=== PATIENT | female | born 1940 ===

== ENCOUNTER 2016-11-19 02:52 | Inpatient (IN) | payer MEDICARE, MEDICAID ==
[2016-11-19 02:52] VITALS: BMI 19.5
--- NOTE | 2016-11-19 04:16 | ED PDOC ---
HPI: General Adult Time Seen by Provider: 11/19/16 03:16 Chief Complaint (Nursing): Psychiatric Evaluation Chief Complaint (Provider): Psychiatric Evaluation History Per: Patient History/Exam Limitations: no limitations Onset/Duration Of Symptoms: Hrs Have you had recent travel within the past 21 days to any of the following countries: [place], [place], [place] or [place]?: No Current Symptoms Are (Timing): Better Severity: Mild Additional Complaint(s): 76 y/o female patient presenting to the ED with chest pain and anxiety. PT states yesterday at 7pm she was having dinner and decided to check her blood pressure which read 149/60. She states she took two of her prescribed medications: Amlodipine and Metoprolol. She states she does not take her medications daily but but that her blood pressure did decrease after taking them. She then states that she checked her blood pressure again at 10:00pm that evening and it read 156/70 which she says made her start to feel nervous, and began having chest pain and palpations. She then called her PCP Dr. Dao who then instructed her to come get checked out in the ED. The PT has a past medical history of Hypothyroidism, high cholesterol, diabetes and high blood pressure and she may possibly have had a coronary stent put in. Past Medical History Reviewed: Historical Data, Nursing Documentation, Vital Signs Vital Signs: Last Vital Signs Temp 98.4 F 11/19/16 03:06 Pulse 68 11/19/16 04:28 Resp 16 11/19/16 03:06 BP 138/71 11/19/16 03:06 Pulse Ox 100 11/19/16 04:28 - Medical History PMH: Anxiety, Arthritis, CAD, HTN, Hypercholesterolemia, Hypothyroidism Denies: Chronic Kidney Disease - Surgical History Surgical History: Coronary Stent (Unconfirmed) - Family History Family History: States: Unknown Family Hx - Immunization History Hx Tetanus Toxoid Vaccination: No Hx Influenza Vaccination: Yes Hx Pneumococcal Vaccination: No - Home Medications Home Medications: Ambulatory Orders Medication Instructions Recorded Levothyroxine [Synthroid] 25 mcg PO DAILY 06/24/15 Aspirin [Ecotrin] 81 mg PO DAILY 07/14/15 amLODIPine [Norvasc] 5 mg PO DAILY 07/14/15 Rosuvastatin Calcium [Crestor] 10 mg PO HS #0 tab 07/15/15 Clonazepam 0.25 mg PO BID 12/05/15 Linaclotide [Linzess] 145 mcg PO DAILY 12/05/15 Metoprolol Succinate [Toprol XL] 25 mg PO DAILY 12/05/15 Omeprazole [Prilosec] 20 mg PO DAILY 12/05/15 Dexlansoprazole [Dexilant] 60 mg PO DAILY #0 ankit. 12/07/15 Ferrous Sulfate 325 mg PO BID #0 tablet 12/08/15 Lubiprostone [Amitiza] 24 mcg PO BID PRN #60 capsule 12/08/15 - Allergies Allergies/Adverse Reactions: Allergies Allergy/AdvReac Type Severity Reaction Status Date / Time Penicillins Allergy ITCHING Verified 12/05/15 14:02 shellfish derived Allergy ITCHING Verified 12/05/15 14:02 Review of Systems ROS Statement: Except As Marked, All Systems Reviewed And Found Negative Constitutional: Negative for: Fever Cardiovascular: Positive for: Chest Pain, Palpitations Respiratory: Negative for: Shortness of Breath, Wheezing Psych: Positive for: Anxiety Physical Exam - Reviewed Nursing Documentation Reviewed: Yes Vital Signs Reviewed: Yes - Physical Exam Appears: Positive for: Non-toxic, No Acute Distress Head Exam: Positive for: ATRAUMATIC, NORMAL INSPECTION, NORMOCEPHALIC Skin: Positive for: Normal Color, Warm Eye Exam: Positive for: Normal appearance Neck: Positive for: Normal, Painless ROM, Supple Cardiovascular/Chest: Positive for: Regular Rate, Rhythm. Negative for: Murmur Respiratory: Positive for: Normal Breath Sounds Extremity: Positive for: Normal ROM. Negative for: Tenderness Neurologic/Psych: Positive for: Alert, Oriented. Negative for: Motor/Sensory Deficits - Laboratory Results Result Diagrams: 11/19/16 04:40 11/19/16 04:40 - ECG ECG: Positive for: Interpreted By Me ECG Rhythm: Positive for: Sinus Rhythm. Negative for: ST/T Changes Rate: 68 (BPM) O2 Sat by Pulse Oximetry: 100 (98) Pulse Ox Interpretation: Normal - Radiology X-Ray: Interpreted by Me (CXR) X-Ray Interpretation: No Acute Disease - Progress ED Course And Treament: Case d/w Dr. Dao and arrangements made for 23 hr observation. IV NS hydration. Medical Decision Making Medical Decision Making: Time: 357 Initial impression: Anxiety Initial plan: --CMP --TROPONIN I --CBC --CHEST PORTABLE XRAY --ASPIRIN 324MG PO --[employer] --IV INSERTION Scribe Attestation: Documented by Jessie Cochran, acting as a scribe for LILIAM Slater MD Scribe Attestation: All medical record entries made by the Scribe were at my direction and personally dictated by me. I have reviewed the chart and agree that the record accurately reflects my personal performance of the history, physical exam, medical decision making, and the department course for this patient. I have also personally directed, reviewed, and agree with the discharge instructions and disposition. Disposition - Clinical Impression Clinical Impression: Chest pain, Hyponatremia - Patient ED Disposition Is Patient to be Admitted: Yes - Disposition Disposition: Routine/Home Disposition Time: 05:33 Condition: STABLE - Pt Status Changed To: Hospital Disposition Of: Observation - POA Present On Arrival: None KINZA Risk Score for UA/NSTEMI - KINZA Risk Score Age > 64: YES 3 or more CAD Risk Factors: YES Known CAD (Stenosis greater than 50%): NO Aspirin use in past 7 days: YES Severe Angina: NO EKG ST changes greater than 0.5mm: NO Positive Cardiac Marker: NO KINZA Score: 3 % risk at 14 days of: all cause mortality, new or recurrent SD, or severe recurrent ischemia requiring urgen revascularization: 13%
[2016-11-19 04:49] LABS: BASO % 0.7 % (0.0-2.0); EOS % 0.7 % (0.0-4.0); HEMATOCRIT 36.9 % (34.0-47.0); LYMPH # 0.6 K/uL (1.0-4.3); LYMPH % 20.3 % (20.0-40.0); MEAN CELL VOLUME 88.9 fl (81.0-99.0); MEAN CORPUSCULAR HEMOGLOBIN 29.3 pg (27.0-31.0); MEAN CORPUSCULAR HGB CONC 32.9 g/dL (33.0-37.0); MEAN PLATELET VOLUME 7.3 fl (7.2-11.7); MONO # 0.3 K/uL (0.0-0.8); NEUT # 2.3 K/uL (1.8-7.0); NEUT % 70.3 % (50.0-75.0); WHITE BLOOD COUNT 3.2 K/uL (4.8-10.8)
[2016-11-19 05:02] LABS: ALB/GLOB RATIO 1.5 (1.0-2.1); ALKALINE PHOSPHATASE 50 U/L (38-126); ALT/SGPT 34 U/L (9-52); AST/SGOT 35 U/L (14-36); BILIRUBIN,TOTAL 0.9 mg/dl (0.2-1.3); BLOOD UREA NITROGEN 7 mg/dl (7-17); CALCIUM 9.2 mg/dL (8.4-10.2); CARBON DIOXIDE 23 mmol/L (22-30); CHLORIDE 84 mmol/L (98-107); GFR AFRICAN-AMERICAN > 60; GLUCOSE,RANDOM 112 mg/dL (65-105); POTASSIUM 4.1 MMOL/L (3.6-5.0); TOTAL PROTEIN 8.2 G/DL (6.3-8.2)
[2016-11-19 05:20] LABS: SODIUM 118 mmol/l (132-148)
[2016-11-19] MEDS ORDERED: Sodium Chloride 0.9% 1,000 ML IV STA (05:27)
--- NOTE | 2016-11-19 09:40 | RAD ---
HISTORY: chest pain COMPARISON: 12/05/2015 FINDINGS: LUNGS: No focal airspace opacity. Emphysematous changes in the lung apices. PLEURA: No significant pleural effusion identified, no pneumothorax apparent. CARDIOVASCULAR: Stable. OSSEOUS STRUCTURES: The osseous structures demonstrate degenerative changes. VISUALIZED UPPER ABDOMEN: Normal. OTHER FINDINGS: None. IMPRESSION: No focal airspace opacity. No significant interval change.
[2016-11-19] MEDS ORDERED: DEXLANSOPRAZOLE 60 MG PO SCH (10:15)
[2016-11-19] MEDS: Levothyroxine 25 MCG TAB PO SCH (14:13)
[2016-11-19] MEDS: Metoprolol Succinate 25 mg XL Tab PO SCH (14:15)
[2016-11-20] VITALS: O2SAT 99
[2016-11-20 08:18] LABS: BASO % 0.9 % (0.0-2.0); EOS # 0.1 K/uL (0.0-0.7); EOS % 2.9 % (0.0-4.0); LYMPH # 0.8 K/uL (1.0-4.3); LYMPH % 26.6 % (20.0-40.0); MEAN CELL VOLUME 89.3 fl (81.0-99.0); MEAN CORPUSCULAR HEMOGLOBIN 29.2 pg (27.0-31.0); MEAN CORPUSCULAR HGB CONC 32.8 g/dL (33.0-37.0); MEAN PLATELET VOLUME 7.3 fl (7.2-11.7); MONO # 0.5 K/uL (0.0-0.8); MONO % 16.2 % (0.0-10.0); NEUT # 1.6 K/uL (1.8-7.0); NEUT % 53.4 % (50.0-75.0); NRBC % 0.1 % (0.0-0.0); RED CELL DISTRIBUTION WIDTH 13.3 % (11.5-14.5); WHITE BLOOD COUNT 3.1 K/uL (4.8-10.8)
[2016-11-20 08:31] LABS: ALB/GLOB RATIO 1.3 (1.0-2.1); ALKALINE PHOSPHATASE 48 U/L (38-126); ALT/SGPT 35 U/L (9-52); AST/SGOT 39 U/L (14-36); BILIRUBIN,TOTAL 0.4 mg/dl (0.2-1.3); BLOOD UREA NITROGEN 9 mg/dl (7-17); CARBON DIOXIDE 25 mmol/L (22-30); CHLORIDE 100 mmol/L (98-107); GFR AFRICAN-AMERICAN > 60; GLUCOSE,RANDOM 87 mg/dL (65-105); POTASSIUM 3.7 MMOL/L (3.6-5.0); SODIUM 132 mmol/l (132-148); TOTAL PROTEIN 7.3 G/DL (6.3-8.2)
[2016-11-20] MEDS ORDERED: Pantoprazole 20 mg EC Tab PO SCH (09:00)
[2016-11-20] MEDS: Levothyroxine 25 MCG TAB PO SCH (09:00)
--- NOTE | 2016-11-20 10:52 | CP.PCM.HP ---
History of Present Illness - History of Present Illness History of Present Illness: This is a 76 y/o female admitted through the ER last night for apparently elevated BP. She apparently could not sleep and took her BP and noted systolic BP to be 180. Took her meds and was brought to ER where BP was already normal. She was noted however to have very low sodium hence she was kep for observation. She denies any headaches chest pain or SOb. She is very anxious, Has hx of HTN hyperlipidemia and hypothyroidism and anxiety Present on Admission - Present on Admission Any Indicators Present on Admission: No History of DVT/PE: No History of Uncontrolled Diabetes: No Urinary Catheter: No Decubitus Ulcer Present: No Review of Systems - Psychiatric Psychiatric: Anxiety Past Patient History - Infectious Disease Hx of Infectious Diseases: None - Tetanus Immunizations Tetanus Immunization: Unknown - Past Medical History & Family History Past Medical History?: Yes - Past Social History Smoking Status: Never Smoked - CARDIAC Hx Hypercholesterolemia: Yes Hx Hypertension: Yes Other/Comment: Loop recorder internal surveillance system monitor implanted 2016 at [facility] - PULMONARY Hx Respiratory Disorders: No Hx Asthma: No Hx Bronchitis: No Hx Chronic Obstructive Pulmonary Disease (COPD): No Hx Emphysema: No Hx Lung Cancer: No Hx Pneumonia: No Hx Pulmonary Edema: No Hx Pulmonary Embolism: No Hx Respiratory Aspiration: No Hx Respiratory Tract Infection: No Hx Sleep Apnea: No Hx Tuberculosis: No - NEUROLOGICAL Hx Neurological Disorder: Yes Other/Comment: Dizziness - HEENT Hx HEENT Problems: No - RENAL Hx Chronic Kidney Disease: No - ENDOCRINE/METABOLIC Hx Hypothyroidism: Yes - HEMATOLOGICAL/ONCOLOGICAL Hx Blood Disorders: No - INTEGUMENTARY Hx Dermatological Problems: No - MUSCULOSKELETAL/RHEUMATOLOGICAL Hx Musculoskeletal Disorders: Yes Hx Arthritis: Yes Hx Falls: No - GASTROINTESTINAL Hx Gastrointestinal Disorders: Yes Hx Ulcer: Yes Other/Comment: gastritis ,rectal bleeding - GENITOURINARY/GYNECOLOGICAL Hx Genitourinary Disorders: No - PSYCHIATRIC Hx Anxiety: Yes Hx Substance Use: No - SURGICAL HISTORY Hx Surgeries: Yes Hx Coronary Stent: Yes (Unconfirmed) - ANESTHESIA Hx Anesthesia: Yes Hx Anesthesia Reactions: No Hx Malignant Hyperthermia: No Has any member of the family had a problem w/ anesthesia?: No Meds Allergies/Adverse Reactions: Allergies Allergy/AdvReac Type Severity Reaction Status Date / Time Penicillins Allergy ITCHING Verified 12/05/15 14:02 shellfish derived Allergy ITCHING Verified 06/18/16 14:02 Physical Exam - Head Exam Head Exam: NORMAL INSPECTION - Eye Exam Eye Exam: Normal appearance - ENT Exam ENT Exam: Mucous Membranes Moist - Respiratory Exam Respiratory Exam: Clear to Auscultation Bilateral - Cardiovascular Exam Cardiovascular Exam: REGULAR RHYTHM - GI/Abdominal Exam GI & Abdominal Exam: Normal Bowel Sounds - Neurological Exam Neurological exam: CN II-XII Intact, Oriented x3 - Psychiatric Exam Psychiatric exam: Anxious Results - Vital Signs Recent Vital Signs: Last Vital Signs Temp 97.9 F 11/20/16 07:52 Pulse 58 L 11/20/16 08:30 Resp 18 11/20/16 07:52 BP 159/68 H 11/20/16 08:30 Pulse Ox 99 11/20/16 07:52 - Labs Result Diagrams: 11/20/16 06:30 11/20/16 06:30 Labs: Laboratory Results - last 24 hr 11/20/16 11/20/16 11/20/16 05:04 06:30 06:30 WBC 3.1 L RBC 4.25 Hgb 12.4 Hct 38.0 MCV 89.3 MCH 29.2 MCHC 32.8 L RDW 13.3 Plt Count 176 MPV 7.3 Neut % (Auto) 53.4 Lymph % (Auto) 26.6 [place] % (Auto) 16.2 H Eos % (Auto) 2.9 Baso % (Auto) 0.9 Neut # 1.6 L Lymph # 0.8 L [place] # 0.5 Eos # 0.1 Baso # 0.0 Sodium 132 Potassium 3.7 Chloride 100 Carbon Dioxide 25 Anion Gap 11 BUN 9 Creatinine 0.5 L Est GFR ( Amer) > 60 Est GFR (Non-Af Amer) > 60 POC Glucose (mg/dL) 83 Random Glucose 87 Calcium 9.0 Total Bilirubin 0.4 AST 39 H ALT 35 Alkaline Phosphatase 48 Total Protein 7.3 Albumin 4.1 Globulin 3.2 Albumin/Globulin Ratio 1.3 Assessment & Plan (1) Hyponatremia Status: Acute (2) HTN (hypertension), benign Status: Acute (3) Hyperlipidemia Status: Chronic (4) Hypothyroid Status: Chronic (5) Anxiety Status: Acute - Assessment and Plan (Free Text) Plan: will give liberal salty diet increase hydration BP check repeat labs in am resume all home meds.
--- NOTE | 2016-11-20 10:57 | CP.PCM.DIS ---
Provider - Provider Date of Admission: 11/19/16 10:27 Attending physician: Ariel Dao MD Time Spent in preparation of Discharge (in minutes): 20 Diagnosis - Discharge Diagnosis (1) Hyponatremia Status: Acute (2) HTN (hypertension), benign Status: Acute (3) Hyperlipidemia Status: Chronic (4) Hypothyroid Status: Chronic (5) Anxiety Status: Acute Hospital Course - Lab Results Lab Results: Most Recent Lab Values WBC 3.1 K/uL (4.8-10.8) L 11/20/16 06:30 RBC 4.25 Mil/uL (3.80-5.20) 11/20/16 06:30 Hgb 12.4 g/dL (12.0-16.0) 11/20/16 06:30 Hct 38.0 % (34.0-47.0) 11/20/16 06:30 MCV 89.3 fl (81.0-99.0) 11/20/16 06:30 MCH 29.2 pg (27.0-31.0) 11/20/16 06:30 MCHC 32.8 g/dL (33.0-37.0) L 11/20/16 06:30 RDW 13.3 % (11.5-14.5) 11/20/16 06:30 Plt Count 176 K/uL (130-400) 11/20/16 06:30 MPV 7.3 fl (7.2-11.7) 11/20/16 06:30 Neut % (Auto) 53.4 % (50.0-75.0) 11/20/16 06:30 Lymph % (Auto) 26.6 % (20.0-40.0) 11/20/16 06:30 [place] % (Auto) 16.2 % (0.0-10.0) H 11/20/16 06:30 Eos % (Auto) 2.9 % (0.0-4.0) 11/20/16 06:30 Baso % (Auto) 0.9 % (0.0-2.0) 11/20/16 06:30 Neut # 1.6 K/uL (1.8-7.0) L 11/20/16 06:30 Lymph # 0.8 K/uL (1.0-4.3) L 11/20/16 06:30 [place] # 0.5 K/uL (0.0-0.8) 11/20/16 06:30 Eos # 0.1 K/uL (0.0-0.7) 11/20/16 06:30 Baso # 0.0 K/uL (0.0-0.2) 11/20/16 06:30 Sodium 132 mmol/l (132-148) 11/20/16 06:30 Potassium 3.7 MMOL/L (3.6-5.0) 11/20/16 06:30 Chloride 100 mmol/L (98-107) 11/20/16 06:30 Carbon Dioxide 25 mmol/L (22-30) 11/20/16 06:30 Anion Gap 11 (10-20) 11/20/16 06:30 BUN 9 mg/dl (7-17) 11/20/16 06:30 Creatinine 0.5 mg/dL (0.7-1.2) L 11/20/16 06:30 Est GFR ( Amer) > 60 11/20/16 06:30 Est GFR (Non-Af Amer) > 60 11/20/16 06:30 POC Glucose (mg/dL) 83 mg/dL (65-110) 11/20/16 05:04 Random Glucose 87 mg/dL (65-105) 11/20/16 06:30 Calcium 9.0 mg/dL (8.4-10.2) 11/20/16 06:30 Total Bilirubin 0.4 mg/dl (0.2-1.3) 11/20/16 06:30 AST 39 U/L (14-36) H 11/20/16 06:30 ALT 35 U/L (9-52) 11/20/16 06:30 Alkaline Phosphatase 48 U/L (38-126) 11/20/16 06:30 Troponin I < 0.0120 ng/mL (0.00-0.120) 11/19/16 04:40 Total Protein 7.3 G/DL (6.3-8.2) 11/20/16 06:30 Albumin 4.1 g/dL (3.5-5.0) 11/20/16 06:30 Globulin 3.2 gm/dL (2.2-3.9) 11/20/16 06:30 Albumin/Globulin Ratio 1.3 (1.0-2.1) 11/20/16 06:30 - Hospital Course Hospital Course: This is a 76 y/o female admitted for hyponatremia. Apparently sh has been on a no salt diet due to her HTN. She was rushed to the ER for elevated BP but noted to have a sodium of 118 hence she was kept for observation She was placed on a liberal salt diet and repeat labs showed a sodium of 132. She had no chest pain or SOB or headaches, She was maintained on all her home meds and was discharged in stable condition. advised to follow up in 1 to 2 weeks Discharge Exam - Head Exam Head Exam: NORMAL INSPECTION - Eye Exam Eye Exam: Normal appearance - Respiratory Exam Respiratory Exam: NORMAL BREATHING PATTERN - Cardiovascular Exam Cardiovascular Exam: REGULAR RHYTHM - GI/Abdominal Exam GI & Abdominal Exam: Normal Bowel Sounds - Neurological Exam Neurological exam: CN II-XII Intact - Psychiatric Exam Psychiatric exam: Normal Mood Discharge Plan - Follow Up Plan Condition: STABLE Disposition: HOME/ ROUTINE Additional Instructions: follow up in 1 week cont all home meds.
[2016-11-20 15:44] VITALS: BP 104/62; RESP 20; TEMP 97.4
[2016-11-20] MEDS: Metoprolol Succinate 25 mg XL Tab PO SCH (16:15)
[2016-11-20 16:16] VITALS: PULSE 54
== END 2016-11-20 18:34 | disposition home or self-care (01) | DRG 641 ==
LOC: H.ER 02:52 → H.ERHOLD 05:32 → H.TEL 06:33 → OBSVTOIN 10:27
PROVIDERS: ADMIT Family Medicine; ATTEND Family Medicine
DX: E87.1 Hypo-osmolality and hyponatremia (principal); E11.9 Type 2 diabetes mellitus without complications; I10 Essential (primary) hypertension; E03.9 Hypothyroidism, unspecified; F41.9 Anxiety disorder, unspecified; E78.00 Pure hypercholesterolemia, unspecified; E78.5 Hyperlipidemia, unspecified; I25.10 Atherosclerotic heart disease of native coronary artery without angina pectoris

== ENCOUNTER 2018-01-12 12:41 | Inpatient (IN) | payer MEDICARE, MEDICAID ==
[2018-01-12 12:41] VITALS: BMI 19.5
[2018-01-12] MEDS ORDERED: Sodium Chloride 0.9% 500 ML IV STA (13:18)
--- NOTE | 2018-01-12 13:22 | ED PDOC ---
HPI: Chest Pain Time Seen by Provider: 01/12/18 12:53 Chief Complaint (Nursing): Chest Pain Chief Complaint (Provider): Chest pain History Per: Patient History/Exam Limitations: no limitations Onset/Duration Of Symptoms: Days (today) Current Symptoms Are (Timing): Better Additional Complaint(s): Pt. got into an argument today and started having chest pain after on the left side. No dyspnea, weakness, numbness, tingles, fever, cough. No leg pain, headache, dizziness. Dr. Dao: PCP. Past Medical History Reviewed: Nursing Documentation, Vital Signs Vital Signs: Last Vital Signs Temp 97.0 F L 01/12/18 12:44 Pulse 71 01/12/18 16:03 Resp 19 01/12/18 16:03 BP 125/67 01/12/18 16:03 Pulse Ox 99 01/12/18 16:23 - Medical History PMH: Anxiety, Arthritis, CAD, Diabetes, HTN, Hypercholesterolemia, Hypothyroidism Denies: Asthma, Bronchitis, COPD, Emphysema, Pneumonia, Pulmonary Embolism, Chronic Kidney Disease, Sleep Apnea - Surgical History Surgical History: Coronary Stent (Unconfirmed) - Family History Family History: States: Unknown Family Hx - Immunization History Hx Tetanus Toxoid Vaccination: No Hx Influenza Vaccination: Yes Hx Pneumococcal Vaccination: No - Home Medications Home Medications: Ambulatory Orders Medication Instructions Recorded Levothyroxine [Synthroid] 25 mcg PO DAILY 06/24/15 Aspirin [Ecotrin] 81 mg PO DAILY 07/14/15 amLODIPine [Norvasc] 5 mg PO DAILY 07/14/15 Rosuvastatin Calcium [Crestor] 10 mg PO HS #0 tab 07/15/15 Clonazepam 0.25 mg PO BID 12/05/15 Linaclotide [Linzess] 145 mcg PO DAILY 12/05/15 Metoprolol Succinate XL [Toprol XL] 25 mg PO DAILY 12/05/15 Omeprazole [Prilosec] 20 mg PO DAILY 12/05/15 Dexlansoprazole [Dexilant] 60 mg PO DAILY #0 bp 12/07/15 Ferrous Sulfate 325 mg PO BID #0 tablet 12/08/15 Lubiprostone [Amitiza] 24 mcg PO BID PRN #60 capsule 12/08/15 - Allergies Allergies/Adverse Reactions: Allergies Allergy/AdvReac Type Severity Reaction Status Date / Time Penicillins Allergy ITCHING Verified 12/05/15 14:02 shellfish derived Allergy ITCHING Verified 12/05/15 14:02 Review of Systems ROS Statement: Except As Marked, All Systems Reviewed And Found Negative Cardiovascular: Positive for: Chest Pain Physical Exam - Reviewed Nursing Documentation Reviewed: Yes Vital Signs Reviewed: Yes - Physical Exam Appears: Positive for: Non-toxic, No Acute Distress Head Exam: Positive for: ATRAUMATIC, NORMAL INSPECTION, NORMOCEPHALIC Skin: Positive for: Normal Color, Warm, DRY Eye Exam: Positive for: EOMI, Normal appearance, PERRL ENT: Positive for: Normal ENT Inspection Neck: Positive for: Normal, Painless ROM Cardiovascular/Chest: Positive for: Regular Rate, Rhythm Respiratory: Positive for: CNT, Normal Breath Sounds Gastrointestinal/Abdominal: Positive for: Normal Exam, Soft. Negative for: Tenderness Back: Positive for: Normal Inspection. Negative for: L CVA Tenderness, R CVA Tenderness Extremity: Positive for: Normal ROM. Negative for: Tenderness, Pedal Edema Neurologic/Psych: Positive for: Alert, staffing director II-XII, Oriented. Negative for: Motor/Sensory Deficits - Laboratory Results Result Diagrams: 01/12/18 13:30 01/12/18 13:30 Interpretation Of Abn Labs: no acute - ECG ECG: Positive for: Interpreted By Me, Viewed By Me ECG Rhythm: Positive for: Normal QRS, Sinus Rhythm, Nonspecific Changes O2 Sat by Pulse Oximetry: 99 Pulse Ox Interpretation: Normal - Radiology X-Ray: Read By Radiologist X-Ray Interpretation: No Acute Disease - Progress ED Course And Treament: 1647: Spoke with Dr. Perales. Will admit tele obs for Dr. Dao. Stable. Pain controlled. Disposition - Clinical Impression Clinical Impression: Acute chest pain - Patient ED Disposition Is Patient to be Admitted: Yes - Disposition Disposition Time: 16:29 Condition: FAIR - Pt Status Changed To: Hospital Disposition Of: Observation - POA Present On Arrival: None
[2018-01-12 13:34] LABS: BASO % 1.1 % (0.0-2.0); EOS % 1.1 % (0.0-4.0); HEMOGLOBIN 12.2 g/dL (12.0-16.0); LYMPH # 0.4 K/uL (1.0-4.3); LYMPH % 15.2 % (20.0-40.0); MEAN CELL VOLUME 89.4 fl (81.0-99.0); MEAN CORPUSCULAR HEMOGLOBIN 29.9 pg (27.0-31.0); MEAN CORPUSCULAR HGB CONC 33.4 g/dL (33.0-37.0); MEAN PLATELET VOLUME 6.9 fl (7.2-11.7); MONO # 0.4 K/uL (0.0-0.8); NEUT % 68.6 % (50.0-75.0); NRBC % 0.1 % (0.0-0.0); RBC 4.09 Mil/uL (3.80-5.20); RED CELL DISTRIBUTION WIDTH 12.8 % (11.5-14.5); WHITE BLOOD COUNT 2.9 K/uL (4.8-10.8)
[2018-01-12 14:10] LABS: BLOOD UREA NITROGEN 9 mg/dl (7-17); GFR NON-AFRICAN AMERICAN > 60
[2018-01-12 14:11] LABS: ALBUMIN 4.6 g/dL (3.5-5.0); CALCIUM 9.5 mg/dL (8.4-10.2)
[2018-01-12 14:12] LABS: ALB/GLOB RATIO 1.4 (1.0-2.1); ALT/SGPT 23 U/L (9-52); AST/SGOT 34 U/L (14-36)
--- NOTE | 2018-01-12 15:23 | RAD ---
Date of service: 01/12/2018 HISTORY: Chest pain COMPARISON: 11/19/2016. FINDINGS: LUNGS: No active pulmonary disease. PLEURA: No significant pleural effusion identified, no pneumothorax apparent. CARDIOVASCULAR: No radiographic findings to suggest acute or significant cardiovascular disease. OSSEOUS STRUCTURES: No significant abnormalities. VISUALIZED UPPER ABDOMEN: Normal. OTHER FINDINGS: None. IMPRESSION: No active disease. No significant interval change compared to the prior examination(s).
--- NOTE | 2018-01-12 21:07 | CARD ---
APPROVED REPORT Date of service: 01/12/2018 EKG Measurement Heart [id number] <Conclusion> Normal sinus rhythm Possible Left atrial enlargement Left axis deviation Septal infarct, age undetermined Abnormal ECG
[2018-01-13] MEDS: Levothyroxine 25 MCG TAB PO SCH (06:43)
[2018-01-13 07:25] LABS: HEMOGLOBIN 12.2 g/dL (12.0-16.0); MEAN CELL VOLUME 89.6 fl (81.0-99.0); MEAN CORPUSCULAR HEMOGLOBIN 29.8 pg (27.0-31.0); MEAN CORPUSCULAR HGB CONC 33.2 g/dL (33.0-37.0); RBC 4.11 Mil/uL (3.80-5.20); RED CELL DISTRIBUTION WIDTH 13.1 % (11.5-14.5); WHITE BLOOD COUNT 2.8 K/uL (4.8-10.8)
[2018-01-13 07:42] LABS: ALB/GLOB RATIO 1.3 (1.0-2.1); ALBUMIN 4.1 g/dL (3.5-5.0); ALT/SGPT 25 U/L (9-52); AST/SGOT 38 U/L (14-36); BLOOD UREA NITROGEN 8 mg/dl (7-17); CALCIUM 9.3 mg/dL (8.4-10.2); GFR NON-AFRICAN AMERICAN > 60; HDL CHOLESTEROL 55 MG/DL (30-70)
[2018-01-13 07:53] LABS: LDL CHOLESTEROL 86 mg/dL (0-129)
[2018-01-13] MEDS: Pantoprazole 40 mg EC Tab PO SCH (08:44)
[2018-01-13] MEDS: Metoprolol Succinate 25 mg XL Tab PO SCH (08:44)
[2018-01-13] MEDS: Enoxaparin 30 mg Syringe SC SCH (08:45)
--- NOTE | 2018-01-13 20:55 | CP.PCM.CON ---
Past Patient History - Infectious Disease Hx of Infectious Diseases: None - Tetanus Immunizations Tetanus Immunization: Unknown - Past Medical History & Family History Past Medical History?: Yes - Past Social History Smoking Status: Never Smoked - CARDIAC Hx Hypercholesterolemia: Yes Hx Hypertension: Yes - PULMONARY Hx Asthma: No Hx Bronchitis: No Hx Chronic Obstructive Pulmonary Disease (COPD): No Hx Emphysema: No Hx Pneumonia: No Hx Pulmonary Embolism: No Hx Sleep Apnea: No - NEUROLOGICAL Hx Neurological Disorder: Yes Other/Comment: Dizziness - HEENT Hx HEENT Problems: No - RENAL Hx Chronic Kidney Disease: No - ENDOCRINE/METABOLIC Hx Diabetes Mellitus Type 2: Yes Hx Hypothyroidism: Yes - HEMATOLOGICAL/ONCOLOGICAL Hx Blood Disorders: No Hx AIDS: No Hx Human Immunodeficiency Virus (HIV): No - INTEGUMENTARY Hx Dermatological Problems: No - MUSCULOSKELETAL/RHEUMATOLOGICAL Hx Arthritis: Yes Hx Falls: Yes - GASTROINTESTINAL Hx Gastrointestinal Disorders: Yes Hx Ulcer: Yes Other/Comment: gastritis ,rectal bleeding - GENITOURINARY/GYNECOLOGICAL Hx Genitourinary Disorders: No - PSYCHIATRIC Hx Anxiety: Yes Hx Substance Use: No - SURGICAL HISTORY Hx Coronary Stent: Yes (Unconfirmed) - ANESTHESIA Hx Anesthesia: Yes Hx Anesthesia Reactions: No Hx Malignant Hyperthermia: No Meds Allergies/Adverse Reactions: Allergies Allergy/AdvReac Type Severity Reaction Status Date / Time Penicillins Allergy ITCHING Verified 12/05/15 14:02 shellfish derived Allergy ITCHING Verified 12/05/15 14:02 - Medications Medications: Current Medications Amlodipine Besylate (Norvasc) 5 mg PO DAILY [facility] Last Admin: 01/13/18 08:44 Dose: 5 mg Aspirin (Ecotrin) 81 mg PO DAILY [facility] Last Admin: 01/13/18 08:44 Dose: 81 mg Atorvastatin Calcium (Lipitor) 40 mg PO [facility] Last Admin: 01/12/18 23:20 Dose: 40 mg Enoxaparin Sodium (Lovenox) 30 mg SC DAILY [facility] PRN Reason: Protocol Last Admin: 01/13/18 08:45 Dose: 30 mg Levothyroxine Sodium (Synthroid) 25 mcg PO DAILY@0630 [facility] Last Admin: 01/13/18 06:43 Dose: 25 mcg Metoprolol Succinate (Toprol Xl) 25 mg PO DAILY [facility] Last Admin: 01/13/18 08:44 Dose: 25 mg Pantoprazole Sodium (Protonix Ec Tab) 40 mg PO DAILY [facility] Last Admin: 01/13/18 08:44 Dose: 40 mg Sitagliptin Phosphate (Januvia) 100 mg PO DAILY [facility] Last Admin: 01/13/18 08:44 Dose: 100 mg Results - Vital Signs Recent Vital Signs: Last Vital Signs Temp 98.4 F 01/13/18 16:00 Pulse 70 01/13/18 16:00 Resp 20 01/13/18 16:00 BP 120/55 L 01/13/18 16:00 Pulse Ox 99 01/13/18 16:00 - Labs Result Diagrams: 01/13/18 06:00 01/13/18 06:00 Labs: Laboratory Results - last 24 hr 01/12/18 01/13/18 01/13/18 21:14 05:21 06:00 WBC RBC Hgb Hct MCV MCH MCHC RDW Plt Count Sodium 136 Potassium 4.2 Chloride 98 Carbon Dioxide 28 Anion Gap 14 BUN 8 Creatinine 0.6 L Est GFR ( Amer) > 60 Est GFR (Non-Af Amer) > 60 POC Glucose (mg/dL) 83 Random Glucose 83 Calcium 9.3 Total Bilirubin 0.9 AST 38 H ALT 25 Alkaline Phosphatase 43 Troponin I < 0.0120 < 0.0120 Total Protein 7.3 Albumin 4.1 Globulin 3.2 Albumin/Globulin Ratio 1.3 Triglycerides 61 Cholesterol 171 LDL Cholesterol Direct 86 HDL Cholesterol 55 Vitamin B12 459 TSH 3rd Generation 3.07 01/13/18 01/13/18 01/13/18 06:00 07:40 11:51 WBC 2.8 L RBC 4.11 Hgb 12.2 Hct 36.8 MCV 89.6 MCH 29.8 MCHC 33.2 RDW 13.1 Plt Count 181 Sodium Potassium Chloride Carbon Dioxide Anion Gap BUN Creatinine Est GFR ( Amer) Est GFR (Non-Af Amer) POC Glucose (mg/dL) 96 Random Glucose Calcium Total Bilirubin AST ALT Alkaline Phosphatase Troponin I Total Protein Albumin Globulin Albumin/Globulin Ratio Triglycerides Cholesterol LDL Cholesterol Direct HDL Cholesterol Vitamin B12 457 TSH 3rd Generation
--- NOTE | 2018-01-13 21:06 | HP ---
CHIEF COMPLAINT: Chest pain. HISTORY OF PRESENT ILLNESS: This is a 77-year-old female patient of Dr. Dao, known case of diabetes, hypertension, elevated cholesterol, hypothyroidism, coronary artery disease, arthritis, anxiety, who had coronary stents done before, who was having chest pain after having argument with somebody and was brought to the emergency room and was admitted for further management. REVIEW OF SYSTEMS: Positive for chest pain. Review of systems is otherwise negative for headache, dizziness, syncope, loss of consciousness, nausea, vomiting, diarrhea, constipation, or any new joint or extremity pain. The patient does complain of chronic arthritic pain. Review of system of all other organ system is unremarkable. PAST MEDICAL HISTORY: Significant for diabetes, hypertension, elevated cholesterol, coronary artery disease, hypothyroidism, arthritis, and anxiety. PAST SURGICAL HISTORY: Remarkable for coronary stent. SOCIAL HISTORY: The patient is currently nonsmoker, nondrinker. No substance abuse. MEDICATIONS: The patient is on normal pain medications including Ecotrin, Synthroid, amlodipine, Crestor, Clonazepam, Lantus, Toprol, Prilosec, and Dexilant. ALLERGIES: THE PATIENT IS ALLERGIC TO PENICILLIN AND SHELLFISH. FAMILY HISTORY: Noncontributory. PHYSICAL EXAMINATION: GENERAL: A well-built, well-nourished 77-year-old female, in no acute distress. VITAL SIGNS: Temperature 97.7, pulse 61, respirations 18, blood pressure 130/66. HEENT: Pupils reacting to light. No JVD. No thyromegaly. No lymphadenopathy. No nystagmus. Normocephalic, atraumatic skull. HEART: S1 and S2. Normal and regular. No significant murmur, gallop, or rub are heard. LUNGS: Shows good bilateral air exchange. No rales or rhonchi. ABDOMEN: Soft and nontender. No organomegaly. No fluid. Bowel sounds are present and normal. EXTREMITIES: No edema. No calf swelling. No tenderness. No acute ischemia. 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 DIAGNOSTIC DATA: Available diagnostic data reviewed. Telemetry monitoring does not reveal significant arrhythmias. Troponin three sets are negative. Chest x-ray is clear. EKG does not reveal any acute ST-T changes. ADMITTING IMPRESSION: Chest pain, rule out acute coronary syndrome, coronary artery disease, hypertension, diabetes with hyperglycemia, hypertension, elevated cholesterol, anxiety, and arthritis. PLAN: As ordered. Case and plan discussed with the patient. Kai Perales MD
[2018-01-14] MEDS: Levothyroxine 25 MCG TAB PO SCH (05:56)
[2018-01-14 07:21] LABS: HEMOGLOBIN 12.3 g/dL (12.0-16.0); MEAN CELL VOLUME 87.9 fl (81.0-99.0); MEAN CORPUSCULAR HEMOGLOBIN 30.5 pg (27.0-31.0); MEAN CORPUSCULAR HGB CONC 34.7 g/dL (33.0-37.0); RBC 4.03 Mil/uL (3.80-5.20); RED CELL DISTRIBUTION WIDTH 12.7 % (11.5-14.5)
[2018-01-14 07:41] LABS: ALB/GLOB RATIO 1.3 (1.0-2.1); ALT/SGPT 19 U/L (9-52); AST/SGOT 31 U/L (14-36); BLOOD UREA NITROGEN 14 mg/dl (7-17); CALCIUM 9.1 mg/dL (8.4-10.2); GFR NON-AFRICAN AMERICAN > 60; HDL CHOLESTEROL 53 MG/DL (30-70)
[2018-01-14 07:45] LABS: LDL CHOLESTEROL 86 mg/dL (0-129)
[2018-01-14] MEDS: Enoxaparin 30 mg Syringe SC SCH (11:07)
[2018-01-14] MEDS: Pantoprazole 40 mg EC Tab PO SCH (11:08)
[2018-01-14] MEDS: Metoprolol Succinate 25 mg XL Tab PO SCH (11:09)
--- NOTE | 2018-01-14 12:58 | PN ---
DATE: 01/14/2018 SUBJECTIVE: The patient seen and examined. Interim events noted. Consults noted and appreciated. The patient remains in progressive care unit on telemetry monitoring. The patient feels better. Chest pain resolved. Arthritis pain is present but controlled and improved. No shortness of breath. PHYSICAL EXAMINATION: GENERAL: The patient is in no acute distress. VITAL SIGNS: Stable. HEART: S1 and S2. Normal and regular. LUNGS: Good bilateral air exchange. ABDOMEN: Soft and nontender. EXTREMITIES: No edema. No calf swelling. No tenderness. No acute ischemia. 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 DIAGNOSTIC DATA: Available diagnostic data reviewed. Telemetry monitoring does not reveal significant arrhythmias. ASSESSMENT AND PLAN: Overall, the patient's general medical condition is stable. We will have the patient ambulate and see if the patient reproduces chest pain. Plan as ordered. Case and plan discussed with the patient. Kai Perales MD
[2018-01-15] MEDS: Levothyroxine 25 MCG TAB PO SCH (05:52)
[2018-01-15 06:14] LABS: HEMOGLOBIN 12.2 g/dL (12.0-16.0); MEAN CELL VOLUME 89.4 fl (81.0-99.0); MEAN CORPUSCULAR HEMOGLOBIN 30.5 pg (27.0-31.0); MEAN CORPUSCULAR HGB CONC 34.2 g/dL (33.0-37.0); RBC 3.99 Mil/uL (3.80-5.20); RED CELL DISTRIBUTION WIDTH 12.7 % (11.5-14.5)
[2018-01-15 06:44] LABS: ALB/GLOB RATIO 1.2 (1.0-2.1); ALBUMIN 3.9 g/dL (3.5-5.0); ALT/SGPT 22 U/L (9-52); AST/SGOT 27 U/L (14-36); BLOOD UREA NITROGEN 17 mg/dl (7-17); CALCIUM 9.2 mg/dL (8.4-10.2); GFR NON-AFRICAN AMERICAN > 60
[2018-01-15] MEDS ORDERED: Aminophylline 25 mg/ml Inj ONE (09:53)
[2018-01-15] MEDS: Metoprolol Succinate 25 mg XL Tab PO SCH (12:13)
[2018-01-15] MEDS: Enoxaparin 30 mg Syringe SC SCH (12:13)
[2018-01-15] MEDS: Pantoprazole 40 mg EC Tab PO SCH (12:14)
[2018-01-15 12:41] VITALS: RESP 20
[2018-01-15 15:40] VITALS: O2SAT 98
--- NOTE | 2018-01-15 16:37 | CARD ---
APPROVED REPORT Date of service: 01/15/2018 Protocol: LEXISCAN Test Type: Stress Nuclear Medications: Amlodipine 5mg, asa 81mg, Atorvastatin 40mg, Enoxaparin Sodium 40mg, Lexothyroxine 25 mcg, Metoprolol 25mg, Pantoprazole 40mg, Sitagliptin 100mg Medical History: Hypercholesterolemia, Hypertension, Dizziness, Diabetes Type 2, Arthritis, Gastritis, Rectal Bleeding. Anxiety, Coronary Stent,? Target HR: 142 bpm Resting ECG: normal Resting Heart Rate: 62 bpm Resting Blood Pressure: 130/60mmHg submaximum (85%): 121 bpm TEST SUMMARY PREINJECTPRE-[id number]/60.0. [id number]/60.0. INJECTIONNS FLUSH00:[id number]/60.0. INJECTIONNUC MED00:[id number]/86.0. [id number]/69.0. PROCEDURE Pharmacologic stress testing was performed using 0.4mg per 5ml of regadenoson given intravenously over 7-10 seconds. POST EXERCISE Reason for Termination: PROTOCOL COMPLETED Target HR: No Max HR: 93 bpm 70% of Maximum Predicted HR: 142 bpm Exercise duration: 01:00 min:sec, 0 Stage Exercise capacity: 1.0METs Max Blood Pressure: 157/68mmHg Blood Pressure response to exercise: N/A Heart Rate response to exercise: N/A Chest Pain: Yes, non-limiting Angina index: 0 Arrhythmia: No, none ST Change: No, none Deviation: 0 mm EXAM: Myocardial Perfusion REST/STRESS Image QualityGood Imaging Protocol The imaging protocol used to acquire images was Rest Tc-99m/stress Tc-99m 1 day Rest Spect myocardial perfusion imaging was performed in supine position 30 minutes following the injection of 10 mCi of Tc-99 Myoview. Time of rest injection: 7:58 Time of rest imagin:30 At peak stress, the patient was injected intravenously with 30mCi of Tc-99 tetrofosmin after an infusion time of minutes and seconds. Time of stress injection: 11:49 Time of stress imagin:00 Gated Stress Spect was performed 70 minutes after intravenous Tc-99 Myoview injection. The images were gated to evaluate regional wall motion and calculate ventricular ejection fraction. NUCLEAR IMAGE INTERPRETATION Study quality was fair. Left Ventricular size was Normal at Rest and Stress. Lung uptake was Normal. Left Ventricular ejection fraction is 90%. The rest and stress images show normal perfusion, normal contraction and thickening. CONCLUSION 1. - Normal myocardial perfusion study with no evidence to suggest ischemia 2. - Normal LVEF Recommendation - Aggressive medical management and risk factor modification
[2018-01-15 19:40] VITALS: BP 111/65; PULSE 75; TEMP 98.1
--- NOTE | 2018-01-16 05:41 | PQF ---
PROVIDER RESPONSE TEXT: REVIEWER QUERY TEXT: Documentation Clarification Your help is requested in clarifying the following documentation, if you can please further specify in the medical record and discharge summary. The patient's Clinical Indicators include: Would you please clarify if there is an associated diagnosis or not to go along with the BMI of 16.6/ EMR has the patient listed as being 5', weighing 85 pounds with a BMI of 16.6. She is on a Heart Heal thy Diet. Query created by: Miladis Muhammad on 01/15/2018 1:11 PM Electronically signed by: Kai Perales 01/16/2018 5:38 AM
== END 2018-01-15 22:10 | disposition home or self-care (01) | DRG 313 ==
LOC: H.ER 12:41 → H.ERHOLD 16:26 → H.TEL 22:56 → OBSVTOIN 01-13 18:02
PROVIDERS: ADMIT Internal Medicine; ATTEND Internal Medicine
DX: R07.9 Chest pain, unspecified (principal); E11.9 Type 2 diabetes mellitus without complications; E78.00 Pure hypercholesterolemia, unspecified; F41.9 Anxiety disorder, unspecified; I10 Essential (primary) hypertension; I25.10 Atherosclerotic heart disease of native coronary artery without angina pectoris; M19.90 Unspecified osteoarthritis, unspecified site; Z79.82 Long term (current) use of aspirin; Z95.5 Presence of coronary angioplasty implant and graft; K29.70 Gastritis, unspecified, without bleeding; Z79.899 Other long term (current) drug therapy; E03.9 Hypothyroidism, unspecified